=== PATIENT | male | born 1995 | race Caucasian/White ===

== ENCOUNTER 2018-07-01 23:18 | Emergency (ER) | payer BC, MEDICAID ==
[2018-07-01] MEDS ORDERED: HYDROmorphone 0.5 MG/0.5 ML Syringe IVPUSH ONE (23:26)
[2018-07-01] MEDS ORDERED: HYDROmorphone 1 MG/ML Syringe IVPUSH ONE (23:51)
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
[2018-07-02] MEDS ORDERED: LORazepam 2 MG/ML SDV IVPUSH ONE (00:26)
[2018-07-02] MEDS ORDERED: Sodium Chloride 0.9% 80 ML IV STA (00:30)
[2018-07-02] MEDS ORDERED: Iopamidol 612 MG/ML 100 ML Bottle IV STA (00:30)
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
[2018-07-02] MEDS ORDERED: Acetaminophen 325 MG Tab PO PRN (02:47)
[2018-07-02] MEDS ORDERED: Ondansetron 4 MG/2 ML SDV IV PRN (02:47)
[2018-07-02] MEDS ORDERED: Ondansetron 4 MG Tab.DIS PO PRN (02:47)
[2018-07-02] MEDS ORDERED: Albuterol 0.083% 2.5 MG/3 ML Neb Soln NEB PRN (02:47)
[2018-07-02] MEDS ORDERED: LORazepam 2 MG/ML SDV IV PRN (02:47)
[2018-07-02] MEDS: HYDROmorphone 1 MG/ML Syringe IVPUSH PRN ×2 (03:10→07:25)
[2018-07-02] MEDS: Sodium Chloride 0.9% 1,000 ML IV SCH ×3 (03:12→18:03)
[2018-07-02] MEDS: oxyCODONE 5 MG Tab PO PRN ×4 (05:40→21:24)
[2018-07-02] MEDS: Docusate Sodium 100 MG Cap PO SCH ×2 (08:40→21:20)
[2018-07-02] MEDS: Pantoprazole 40 MG Tab.CR PO SCH (08:41)
[2018-07-02] MEDS ORDERED: Cyclobenzaprine 10 MG Tab PO SCH (09:00)
[2018-07-02] MEDS: Ibuprofen 800 MG Tab PO PRN ×2 (11:10→16:51)
[2018-07-02] MEDS: tiZANidine 2 MG Tab PO PRN ×2 (12:46→18:44)
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
[2018-07-02] MEDS: diphenhydrAMINE 25 MG Cap PO PRN ×2 (13:24→18:02)
[2018-07-02] MEDS ORDERED: traZODone 50 MG Tab PO SCH (21:00)
[2018-07-03] MEDS: Sodium Chloride 0.9% 1,000 ML IV SCH ×2 (00:35→07:09)
[2018-07-03] MEDS: Ibuprofen 800 MG Tab PO PRN ×2 (00:45→07:19)
[2018-07-03] MEDS: tiZANidine 2 MG Tab PO PRN (00:45)
[2018-07-03] MEDS: diphenhydrAMINE 25 MG Cap PO PRN (00:45)
[2018-07-03] MEDS: Pantoprazole 40 MG Tab.CR PO SCH (07:20)
[2018-07-03] MEDS: oxyCODONE 5 MG Tab PO PRN (08:30)
[2018-07-03] MEDS: Docusate Sodium 100 MG Cap PO SCH (08:31)
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
== END 2018-07-03 12:20 | disposition home or self-care (01) ==
LOC: JP.ED 23:18 → JP.MS 07-02 02:20
PROVIDERS: ADMIT Internal Medicine; ATTEND Internal Medicine
DX: M54.5 Low back pain (principal); M62.830 Muscle spasm of back; R31.9 Hematuria, unspecified; V86.52XA Driver of snowmobile injured in nontraffic accident, initial encounter
CPT/HCPCS: 36415; 71260; 74177; 80048; 80053; 81001; 81003; 82550; 85025; 85027; 96374; 96375; 97035; 97140; 97162; 97530; 97535; 99285; A9270; J1170; J2060; J2405; J7030; Q9967

== ENCOUNTER 2020-03-06 11:50 | Emergency (ER) | payer BC, OTHER ==
[2020-03-06] MEDS ORDERED: LORazepam 2 MG/ML SDV IVPUSH ONE (12:10)
[2020-03-06] MEDS ORDERED: Sodium Chloride 0.9% 1,000 ML IV SCH ×2 (12:15→12:45)
--- NOTE | 2020-03-06 12:45 | EDM.PDOC ---
ED HPI GENERAL MEDICAL PROBLEM - General Chief Complaint: General Stated Complaint: HEART RACING Time Seen by Provider: 03/06/20 12:42 Source of Information: Reports: Patient History Limitations: Reports: No Limitations - History of Present Illness INITIAL COMMENTS - FREE TEXT/NARRATIVE: pt gives a history of feeling like his heart is racing and he feels warm. He was dizzy when he got in the shower. He has a history of binge drinking on the weekends. He did drink about 15 beers last nite. He states he usually drinks more than that. Onset: Today, Sudden Duration: Hour(s): Location: Reports: Generalized Associated Symptoms: Reports: Headaches, Weakness - Related Data Allergies Allergy/AdvReac Type Severity Reaction Status Date / Time No Known Allergies Allergy Verified 03/06/20 12:13 Home Meds: Home Meds NK [No Known Home Meds] 03/06/20 [History] Past Medical History - Past Health History Medical/Surgical History: Denies Medical/Surgical History Genitourinary History: Reports: Other (See Below) Other Genitourinary History: Per patient's report: urinary frequency, difficulty starting stream, notes family hx Musculoskeletal History: Reports: Fracture Other Musculoskeletal History: L UE fracture (football). R shoulder dislocation (football). Rib fractures Psychiatric History: Reports: Anxiety, Depression - Infectious Disease History Infectious Disease History: Reports: Chicken Pox - Past Surgical History HEENT Surgical History: Reports: Other (See Below) Other HEENT Surgeries/Procedures: jaw surgery Musculoskeletal Surgical History: Reports: Other (See Below) Other Musculoskeletal Surgeries/Procedures:: left elbow, Social & Family History - Family History Family Medical History: No Pertinent Family History - Tobacco Use Tobacco Use Status *Q: Never Tobacco User - Caffeine Use Caffeine Use: Reports: Coffee, Energy Drinks, Soda, Tea Caffeine Use Comment: red bull each morning - Alcohol Use Days Per Week of Alcohol Use: 1 Number of Drinks Per Day: 1 Total Drinks Per Week: 1 - Recreational Drug Use Recreational Drug Use: No - Living Situation & Occupation Living situation: Reports: Single, with Family (lives with Dad in [place], [place].) Occupation: Unemployed (seasonal employee, lay off during the winter) ED ROS GENERAL - Review of Systems Review Of Systems: See Below Constitutional: Reports: Weakness, Diaphoresis, Other (pt was dizzy in the shower after drinking about 15 beers last nite. ) HEENT: Reports: No Symptoms Respiratory: Reports: No Symptoms Cardiovascular: Reports: Palpitations, Other (pt felt like his heart ws very rpid. ) Endocrine: Reports: No Symptoms GI/Abdominal: Reports: Nausea : Reports: No Symptoms Musculoskeletal: Reports: No Symptoms Skin: Reports: No Symptoms ED EXAM, GENERAL - Physical Exam Exam: See Below Free Text/Narrative:: pt arrived anxious dizzy and feeling like his heart is punding. Exam Limited By: No Limitations General Appearance: Alert, Anxious Ears: Normal TMs Nose: Normal Inspection Throat/Mouth: Normal Inspection Head: Atraumatic Neck: Normal Inspection Respiratory/Chest: No Respiratory Distress Cardiovascular: Regular Rate, Rhythm, Other (hr was 90. ) GI/Abdominal: Soft, Non-Tender (Male) Exam: Deferred Rectal (Males) Exam: Deferred Back Exam: Normal Inspection Extremities: Normal Inspection Neurological: Alert, Oriented, Normal Cognition Course - Vital Signs Last Recorded V/S: Last Vital Signs Temp 37.1 C 03/06/20 12:29 Pulse 89 03/06/20 12:36 Resp 18 03/06/20 12:29 BP 157/91 H 03/06/20 12:36 Pulse Ox 99 03/06/20 12:29 - Orders/Labs/Meds Orders: Active Orders 24 hr Category Date Time Status CORONAVIRUS COVID-19, BRUNO Stat Lab 03/06/20 14:04 Ordered Sodium Chloride 0.9% [Normal Saline] 1,000 ml Med 03/06/20 12:15 Active IV ASDIRECTED Sodium Chloride 0.9% [Normal Saline] 1,000 ml Med 03/06/20 12:45 Active IV ASDIRECTED Medication Orders Sodium Chloride (Normal Saline) 1,000 mls @ 999 mls/hr IV ASDIRECTED IFTIKHAR Last Admin: 03/06/20 12:24 Dose: 999 mls/hr Documented by: TATO Sodium Chloride (Normal Saline) 1,000 mls @ 999 mls/hr IV ASDIRECTED IFTIKHAR Last Admin: 03/06/20 13:25 Dose: 999 mls/hr Documented by: PASCALE Labs: Laboratory Tests 03/06/20 03/06/20 03/06/20 Range/Units 12:17 12:17 12:33 WBC 6.0 (4.5-11.0) K/uL RBC 5.55 (4.30-5.90) M/uL Hgb 15.5 H D (12.0-15.0) g/dL Hct 47.1 (40.0-54.0) % MCV 85 (80-98) fL MCH 28 (27-31) pg MCHC 33 (32-36) % Plt Count 246 (150-400) K/uL Neut % (Auto) 65 (36-66) % Lymph % (Auto) 26 (24-44) % [place] % (Auto) 8 H (2-6) % Eos % (Auto) 1 L (2-4) % Baso % (Auto) 0 (0-1) % Sodium 144 (140-148) mmol/L Potassium 4.1 (3.6-5.2) mmol/L Chloride 109 H (100-108) mmol/L Carbon Dioxide 21 (21-32) mmol/L Anion Gap 18.1 H (5.0-14.0) mmol/L BUN 17 (7-18) mg/dL Creatinine 1.0 (0.8-1.3) mg/dL Est Cr Clr Drug Dosing 120.27 mL/min Estimated GFR (MDRD) > 60 (>60) Glucose 114 H (74-106) mg/dL Calcium 8.8 (8.5-10.1) mg/dL Total Bilirubin 0.2 (0.2-1.0) mg/dL AST 19 (15-37) U/L ALT 33 (12-78) U/L Alkaline Phosphatase 66 (46-116) U/L Total Protein 7.0 (6.4-8.2) g/dL Albumin 4.1 (3.4-5.0) g/dL Globulin 2.9 (2.3-3.5) g/dL Albumin/Globulin Ratio 1.4 (1.2-2.2) Urine Color Yellow (YELLOW) Urine Appearance Clear (CLEAR) Urine pH 5.5 (5.0-8.0) Ur Specific [place] >= 1.030 (1.008-1.030) Urine Protein Negative (NEGATIVE) mg/dL Urine Glucose (UA) Negative (NEGATIVE) mg/dL Urine Ketones Trace H (NEGATIVE) mg/dL Urine Occult Blood Negative (NEGATIVE) Urine Nitrite Negative (NEGATIVE) Urine Bilirubin Negative (NEGATIVE) Urine Urobilinogen 0.2 (0.2-1.0) EU/dL Ur Leukocyte Esterase Negative (NEGATIVE) Urine RBC Not seen (0-5) Urine WBC 0-5 (0-5) Ur Epithelial Cells Not seen Amorphous Sediment Not seen Urine Bacteria Not seen Urine Mucus Not seen Ethyl Alcohol mg/dL 03/06/20 Range/Units 12:55 WBC (4.5-11.0) K/uL RBC (4.30-5.90) M/uL Hgb (12.0-15.0) g/dL Hct (40.0-54.0) % MCV (80-98) fL MCH (27-31) pg MCHC (32-36) % Plt Count (150-400) K/uL Neut % (Auto) (36-66) % Lymph % (Auto) (24-44) % [place] % (Auto) (2-6) % Eos % (Auto) (2-4) % Baso % (Auto) (0-1) % Sodium (140-148) mmol/L Potassium (3.6-5.2) mmol/L Chloride (100-108) mmol/L Carbon Dioxide (21-32) mmol/L Anion Gap (5.0-14.0) mmol/L BUN (7-18) mg/dL Creatinine (0.8-1.3) mg/dL Est Cr Clr Drug Dosing mL/min Estimated GFR (MDRD) (>60) Glucose (74-106) mg/dL Calcium (8.5-10.1) mg/dL Total Bilirubin (0.2-1.0) mg/dL AST (15-37) U/L ALT (12-78) U/L Alkaline Phosphatase (46-116) U/L Total Protein (6.4-8.2) g/dL Albumin (3.4-5.0) g/dL Globulin (2.3-3.5) g/dL Albumin/Globulin Ratio (1.2-2.2) Urine Color (YELLOW) Urine Appearance (CLEAR) Urine pH (5.0-8.0) Ur Specific [place] (1.008-1.030) Urine Protein (NEGATIVE) mg/dL Urine Glucose (UA) (NEGATIVE) mg/dL Urine Ketones (NEGATIVE) mg/dL Urine Occult Blood (NEGATIVE) Urine Nitrite (NEGATIVE) Urine Bilirubin (NEGATIVE) Urine Urobilinogen (0.2-1.0) EU/dL Ur Leukocyte Esterase (NEGATIVE) Urine RBC (0-5) Urine WBC (0-5) Ur Epithelial Cells Amorphous Sediment Urine Bacteria Urine Mucus Ethyl Alcohol 25 mg/dL Meds: Medications Generic Name Dose Route Start Last Admin Trade Name Freq PRN Reason Stop Dose Admin Sodium Chloride 1,000 mls @ 999 mls/hr 03/06/20 12:15 03/06/20 12:24 Normal Saline IV 999 mls/hr ASDIRECTED IFTIKHAR Administration Sodium Chloride 1,000 mls @ 999 mls/hr 03/06/20 12:45 03/06/20 13:25 Normal Saline IV 999 mls/hr ASDIRECTED IFTIKHAR Administration Discontinued Medications Generic Name Dose Route Start Last Admin Trade Name Freq PRN Reason Stop Dose Admin Lorazepam 0.5 mg 03/06/20 12:10 03/06/20 12:40 Ativan IVPUSH 03/06/20 12:11 0.5 mg ONETIME ONE Administration - Re-Assessments/Exams Free Text/Narrative Re-Assessment/Exam: 03/06/20 14:10 pt was given 2 liters of fluid and ativan .5. He is feeling much better will get a Covid as a send out andf let him go home. Departure - Departure Time of Disposition: 14:05 Disposition: Home, Self-Care 01 Condition: Fair Clinical Impression: Dehydration, History of ETOH abuse - Discharge Information Instructions: Dehydration, Adult, [id number] Referrals: PCP,None [Primary Care Provider] - Forms: ED Department Discharge Care Plan Goals: push fluids, will notify of the results of the Covid test. Sepsis Event Note (ED) - Evaluation Sepsis Screening Result: No Definite Risk - Focused Exam Vital Signs: Vital Signs Temp Pulse Resp BP Pulse Ox 03/06/20 12:36 89 157/91 H 03/06/20 12:29 37.1 C 94 18 162/95 H 99 03/06/20 12:05 37.1 C 94 18 162/95 H 99 - My Orders Last 24 Hours: My Active Orders 03/06/20 12:15 Sodium Chloride 0.9% [Normal Saline] 1,000 ml IV ASDIRECTED 03/06/20 12:45 Sodium Chloride 0.9% [Normal Saline] 1,000 ml IV ASDIRECTED 03/06/20 14:04 CORONAVIRUS COVID-19, BRUNO Stat - Assessment/Plan Last 24 Hours: My Active Orders 03/06/20 12:15 Sodium Chloride 0.9% [Normal Saline] 1,000 ml IV ASDIRECTED 03/06/20 12:45 Sodium Chloride 0.9% [Normal Saline] 1,000 ml IV ASDIRECTED 03/06/20 14:04 CORONAVIRUS COVID-19, BRUNO Stat
== END 2020-03-06 14:16 | disposition home or self-care (01) ==
LOC: JP.ED 11:50
DX: E86.0 Dehydration (principal); F10.11 Alcohol abuse, in remission; Z20.828 Contact with and (suspected) exposure to other viral communicable diseases
CPT/HCPCS: 36415; 80053; 80307; 81001; 85025; 87635; 96374; 99284; J2060; J7030; U0002

== ENCOUNTER 2024-08-10 01:54 | Emergency (ER) | payer OTHER ==
[2024-08-10] MEDS ORDERED: Naloxone 0.4 MG/ML SDV IVPUSH PRN (02:06)
[2024-08-10] MEDS: HYDROmorphone 0.5 MG/0.5 ML Syringe IVPUSH ONE (02:12)
[2024-08-10 02:24] LABS: BASOPHILS ABSOLUTE AUTO 0.06 K/uL (0.00-0.10); BASOPHILS PERCENT AUTO 0.7 % (0.1-1.3); EOSINOPHILS ABSOLUTE AUTO 0.07 K/uL (0.00-0.40); EOSINOPHILS PERCENT AUTO 0.8 % (0.0-5.4); HEMATOCRIT 40.5 % (38.4-49.7); HEMOGLOBIN 13.6 g/dL (12.9-16.9); IMMATURE GRAN ABSOLUTE AUTO 0.02 K/uL (0.00-0.23); IMMATURE GRAN PERCENT AUTO 0.2 % (0.0-0.7); LYMPHOCYTES ABSOLUTE AUTO 3.46 K/uL (0.8-3.3); LYMPHOCYTES PERCENT AUTO 39.6 % (11.4-47.7); MEAN CORPUSCULAR HEMOGLOBIN 29.1 pg (31.6-35.5); MEAN CORPUSCULAR HGB CONC 33.6 g/dL (31.6-35.5); MEAN CORPUSCULAR VOLUME 86.7 fL (81.4-99.0); MONOCYTES ABSOLUTE AUTO 0.49 K/uL (0.20-0.90); MONOCYTES PERCENT AUTO 5.6 % (3.3-12.6); NEUTROPHILS ABSOLUTE AUTO 4.63 K/uL (1.0-7.6); NEUTROPHILS PERCENT AUTO 53.1 % (40.0-78.1); PLATELET COUNT,PLT 203 K/uL (130-375); RED BLOOD CELL COUNT 4.67 M/uL (4.14-5.76); WHITE BLOOD CELL COUNT,WBC 8.7 K/uL (3.2-11.0)
[2024-08-10 02:39] LABS: ANION GAP 7.3 mmol/L (5.0-14.0); CALCIUM 9.2 mg/dL (8.5-10.1); CREATININE 1.3 mg/dL (0.8-1.3); EST CRCL DRUG DOSING (CG) 89.3 mL/min; POTASSIUM,K 4.3 mmol/L (3.6-5.2)
[2024-08-10 02:56] LABS: APPEARANCE,URINE CLOUDY (CLEAR); BILIRUBIN,URINE NEGATIVE (NEGATIVE); GLUCOSE,URINE NEGATIVE (NEGATIVE); KETONES,URINE NEGATIVE (NEGATIVE); NITRITE,URINE NEGATIVE (NEGATIVE); OCCULT BLOOD,URINE LARGE (NEGATIVE); PROTEIN,URINE 100 mg/dL (NEGATIVE); UROBILINOGEN,URINE 0.2 EU/dL (0.2-1.0)
[2024-08-10 02:57] LABS: COLOR,URINE RED (YELLOW)
[2024-08-10 02:58] LABS: AMORPHOUS SEDIMENT,URINE NOT SEEN; BACTERIA,URINE FEW; EPITHELIAL CELLS,URINE NOT SEEN; LEUKOCYTE ESTERASE,URINE TRACE (NEGATIVE); MUCUS,URINE NOT SEEN; RBC,URINE PACKED (0-5)
[2024-08-10] MEDS: Ketorolac 15 MG/ML SDV IVPUSH ONE (03:53)
== END 2024-08-10 04:45 | disposition home or self-care (01) ==
LOC: JP.ED 01:54
DX: R10.32 Left lower quadrant pain (principal); Z96.0 Presence of urogenital implants; Z86.16 Personal history of COVID-19; Z79.899 Other long term (current) drug therapy
CPT/HCPCS: 36415; 74018; 80048; 81001; 85025; 96374; 96375; 99284; J1885